=== PATIENT | male | born 1960 | race Caucasian/White ===

== ENCOUNTER 2019-02-07 14:44 | Outpatient (CLI) | payer OTHER | END 2019-02-07 14:45 | disposition critical access hospital (66) | LOC: EMS 14:44 | PROVIDERS: ATTEND Surgery | DX: R73.09 Other abnormal glucose (principal); R55 Syncope and collapse | CPT/HCPCS: A0425; A0429 ==

== ENCOUNTER 2019-02-07 15:05 | Emergency (ER) | payer OTHER ==
[2019-02-07] MEDS ORDERED: SODIUM CHLORIDE 0.9% 1,000 ML IV ONE (15:22)
[2019-02-07] MEDS ORDERED: TETANUS/DIPHTHERIA/PERTUSSIS 0.5 ML SYRINGE IM ONE (15:25)
--- NOTE | 2019-02-07 15:25 | ED Physician Documentation ---
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 He was walking his driveway and passed out. He has scrapes on his face. Also on the right hand and the right knee. Tetanus is unknown. He is a little bit belligerent on initial evaluation and refusing to the c-collar on. Blood sugar was quite high for paramedics. He is a diabetic on metformin.) Review of Systems Constitutional: denies: Fever, Chills Cardiac: denies: Chest pain / pressure, Palpitations Respiratory: denies: Dyspnea, Cough GI: denies: Abdominal Pain PD PAST MEDICAL HISTORY - Past Medical History Past Medical History: Yes Cardiovascular: Hypertension Endocrine/Autoimmune: Type 2 diabetes - Present Medications Home Medications: Ambulatory Orders Medication Instructions Recorded Confirmed Disulfiram [Antabuse] 250 mg PO DAILY #30 tablet 02/07/19 Insulin Glargine [Lantus Solostar] 50 unit SQ DAILY #1 pen 02/07/19 - Allergies Allergies/Adverse Reactions: Allergies Allergy/AdvReac Type Severity Reaction Status Date / Time No Known Drug Allergies Allergy Verified 02/07/19 15:16 - Living Situation Living Situation: reports: With spouse/s.o. - Social History Does the pt drink ETOH?: Yes - Family History Family history: reports: Non contributory PD ED PE NORMAL - Vitals Vital signs reviewed: Yes - General General: Alert and oriented X 3, Other (Slightly slow slurred speech with horizontal line nystagmus.) - HEENT HEENT: PERRL, Other (Shallow scrape on the right eyebrow, no facial bony tenderness.) - Neck Neck: No bony TTP - Cardiac Cardiac: RRR, No murmur - Respiratory Respiratory: No respiratory distress, Clear bilaterally - Abdomen Abdomen: Normal bowel sounds, Soft, Non tender - Extremities Extremities: Other (Nontender mild scrapes on the dorsum of the right hand and to the right patella without tenderness of or limited range of motion) - Neuro Neuro: Alert and oriented X 3, No motor deficit, No sensory deficit, Normal speech Eye Opening: Spontaneous Motor: Obeys Commands Verbal: Oriented GCS Score: 15 Results - Vitals Vitals: Vital Signs - 24 hr 02/07/19 02/07/19 02/07/19 15:14 16:40 16:58 Heart Rate 94 95 94 Respiratory 16 18 16 Rate Blood Pressure 174/97 H 161/99 H 164/86 H O2 Saturation 95 97 98 02/07/19 18:00 Heart Rate 97 Respiratory 22 Rate Blood Pressure 162/96 H O2 Saturation 94 Oxygen O2 Source Room air - EKG (time done) 1515 Rate: Rate (enter#) (95) Rhythm: NSR [place]: Normal Intervals: Normal IA QRS: LVH Ischemia: Normal ST segments Computer interpretation: Agree with computer - Labs Labs: Laboratory Tests 02/07/19 02/07/19 02/07/19 15:44 15:44 17:27 WBC 7.3 RBC 3.64 L Hgb 12.3 L Hct 35.2 L MCV 96.7 H MCH 33.8 H MCHC 34.9 RDW 12.0 Plt Count 233 MPV 10.7 Neut # (Auto) 5.9 Lymph # (Auto) 0.8 L Lewis # (Auto) 0.4 Eos # (Auto) 0.0 Baso # (Auto) 0.1 Absolute Nucleated RBC 0.00 Nucleated RBC % 0.0 Sodium 131 L Potassium 3.5 Chloride 88 L Carbon Dioxide 21 Anion Gap 22.0 H BUN 11 Creatinine 1.0 Estimated GFR (MDRD) 76 L Glucose 671 H* POC Whole Bld Glucose 423 H Calcium 9.2 Total Bilirubin 0.7 AST 33 ALT 24 Alkaline Phosphatase 104 Total Protein 7.5 Albumin 4.3 Globulin 3.2 Albumin/Globulin Ratio 1.3 Lipase 59 H Ethyl Alcohol 293.3 02/07/19 18:38 WBC RBC Hgb Hct MCV MCH MCHC RDW Plt Count MPV Neut # (Auto) Lymph # (Auto) Lewis # (Auto) Eos # (Auto) Baso # (Auto) Absolute Nucleated RBC Nucleated RBC % Sodium Potassium Chloride Carbon Dioxide Anion Gap BUN Creatinine Estimated GFR (MDRD) Glucose POC Whole Bld Glucose 272 H Calcium Total Bilirubin AST ALT Alkaline Phosphatase Total Protein Albumin Globulin Albumin/Globulin Ratio Lipase Ethyl Alcohol - Rads (name of study) CT head and cervical spine Radiology: EMP read contemporaneously (atrophy nad) PD MEDICAL DECISION MAKING - ED course ED course: 58-year-old gentleman who had multifactorial syncope from severe hyperglycemia and alcohol. He sobered up over time and was administered IV fluids and divided doses of insulin with improvement in his blood sugar and mental status. He was counseled at length not to drink. He says he often goes long stretches without drinking and does not really have any withdrawal symptoms. He declined offers for consideration for inpatient detox. Departure - Departure Disposition: 01 Home, Self Care Clinical Impression: Syncope Qualifiers: Syncope type: unspecified Qualified Code(s): R55 - Syncope and collapse Uncontrolled diabetes mellitus Qualifiers: Diabetes mellitus type: type 2 Glycemic state: with hyperglycemia Qualified Code(s): E11.65 - Type 2 diabetes mellitus with hyperglycemia Alcohol intoxication Qualifiers: Complication of substance-induced condition: uncomplicated Qualified Code(s): F10.920 - Alcohol use, unspecified with intoxication, uncomplicated Head injury Qualifiers: Encounter type: initial encounter Qualified Code(s): S09.90XA - Unspecified injury of head, initial encounter Condition: Good Record reviewed to determine appropriate education?: Yes Instructions: ED Alcohol Intoxication, ED Syncope Vasovagal, ED Hyperglycemia Diabetic Follow-Up: [facility] [Provider Group] Prescriptions: Disulfiram [Antabuse] 250 mg PO DAILY #30 tablet Insulin Glargine [Lantus Solostar] 50 unit SQ DAILY #1 pen Comments: Your EKG is abnormal suggesting left ventricular hypertrophy. Follow-up with your primary care physician, next available appointment. He or she may want to order an echocardiogram on you. Also it is imperative not to drink. And control your blood sugars. Check your blood sugars 4 times a day until stable. You can increase the Lantus by 10 units a day if your blood sugars are above 200 persistently. Return for new worsening symptoms.
[2019-02-07 15:51] LABS: BASOPHILS # (AUTO) 0.1 10^3/uL (0.0-0.1); BASOPHILS % (AUTO) 0.8 %; EOSINOPHILS % (AUTO) 0.4 %; HGB - HEMOGLOBIN 12.3 g/dL (14.0-18.0); LYMPHOCYTES # (AUTO) 0.8 10^3/uL (1.5-3.5); LYMPHOCYTES % (AUTO) 10.9 %; MEAN CORPUSCULAR HEMOGLOBIN 33.8 pg (27.0-31.0); MEAN CORPUSCULAR HGB CONC 34.9 g/dL (32.0-36.0); MEAN CORPUSCULAR VOLUME 96.7 fL (80.0-94.0); MEAN PLATELET VOLUME 10.7 fL (7.4-11.4); MONOCYTES # (AUTO) 0.4 10^3/uL (0.0-1.0); MONOCYTES % (AUTO) 5.6 %; NEUTROPHILS # (AUTO) 5.9 10^3/uL (1.5-6.6); NEUTROPHILS % (AUTO) 81.6 %; PLT - PLATELET COUNT 233 10^3/uL (130-450); RED BLOOD COUNT 3.64 10^6/uL (4.70-6.10); WHITE BLOOD COUNT 7.3 x10^3/uL (4.8-10.8)
[2019-02-07 16:06] LABS: ALBUMIN 4.3 g/dL (3.2-5.5); ALBUMIN/GLOBULIN RATIO 1.3 (1.0-2.2); BILIRUBIN,TOTAL 0.7 mg/dL (0.2-1.0); CALCIUM 9.2 mg/dL (8.5-10.3); TOTAL PROTEIN 7.5 g/dL (6.7-8.2)
[2019-02-07] MEDS ORDERED: INSULIN REGULAR HUMAN 100 UNIT/1 ML 10 ML MDV IVP STA ×2 (16:10→17:41)
[2019-02-07] MEDS ORDERED: POTASSIUM CHLOR 10 MEQ/100 ML 10 MEQ/100 ML BAG IV ONE (16:10)
[2019-02-07] MEDS ORDERED: POTASSIUM CHLORIDE 20 MEQ TABLET PO STA (16:10)
--- NOTE | 2019-02-07 17:01 | CT Report ---
Reason: head inj Procedure Date: 02/07/2019 Accession Number: [id number] / [id number] Procedure: CT - CERVICAL SPINE WO CPT Code: FULL RESULT: EXAM: CT CERVICAL SPINE WITHOUT CONTRAST DATE: 02/07/2019 04:35 PM. HISTORY: Head inj. COMPARISONS: None. TECHNIQUE: Thin-section axial images were acquired of the cervical spine without contrast. Post-processing: Coronal and sagittal reformats. Other: None. In accordance with CT protocol optimization, one or more of the following dose reduction techniques were utilized for this exam: automated exposure control, adjustment of mA and/or KV based on patient size, or use of iterative reconstructive technique. FINDINGS: Alignment: No scoliosis or spondylolisthesis. Bones: No fracture or bone lesion. Interspace Levels/Facets: C1-C2: Moderate degenerative changes. C2-C3: Unremarkable. C3-C4: Mild neuroforaminal narrowing on the right. C4-C5: Moderate bilateral neural foraminal narrowing. Moderate degenerative disk disease. C5-C6: Mild degenerative disk disease. C6-C7: Moderate degenerative disk disease with moderate left neural foraminal narrowing. C7-T1: Unremarkable. Musculature: Normal. No fatty atrophy. Other: The paravertebral and prevertebral soft tissues are unremarkable. The lung apices are clear. IMPRESSION: 1. No acute cervical spine fracture or listhesis. 2. Multilevel degenerative changes. RADIA
--- NOTE | 2019-02-07 17:01 | CT Report ---
Reason: head inj Procedure Date: 02/07/2019 Accession Number: [id number] / [id number] Procedure: CT - HEAD WO CPT Code: FULL RESULT: EXAM: CT HEAD EXAM DATE: 02/07/2019 04:35 PM. CLINICAL HISTORY: Head inj. COMPARISON: None. TECHNIQUE: Multiaxial CT images were obtained from the foramen magnum to the vertex. Reformats: Sagittal and coronal. IV contrast: None. In accordance with CT protocol optimization, one or more of the following dose reduction techniques were utilized for this exam: automated exposure control, adjustment of mA and/or KV based on patient size, or use of iterative reconstructive technique. FINDINGS: Parenchyma: No intraparenchymal hemorrhage. No evidence of mass, midline shift, or CT findings of infarction. Patel-white differentiation is distinct. There is mild periventricular white matter hypodensity. Extraaxial Spaces: Normal for age. No subdural or epidural collections identified. Ventricles: Normal in size and position. Sinuses and Orbits: Imaged paranasal sinuses, orbits, and mastoids show no significant abnormality. Bones: No evidence of fracture or calvarial defect. Other: None. IMPRESSION: 1. Negative for acute intracranial hemorrhage, mass-effect or definite acute process. 2. Mild nonfocal white matter disease. Nonspecific and most commonly attributed to sequela of chronic microangiopathy. RADIA
[2019-02-07 18:29] VITALS: BP 162/96
== END 2019-02-07 19:08 | disposition home or self-care (01) ==
LOC: ED 15:05
DX: R55 Syncope and collapse (principal); F10.920 Alcohol use, unspecified with intoxication, uncomplicated; E11.65 Type 2 diabetes mellitus with hyperglycemia; Z79.4 Long term (current) use of insulin; S09.90XA Unspecified injury of head, initial encounter; S00.211A Abrasion of right eyelid and periocular area, initial encounter; S60.511A Abrasion of right hand, initial encounter; S80.211A Abrasion, right knee, initial encounter; W18.30XA Fall on same level, unspecified, initial encounter; Y93.01 Activity, walking, marching and hiking; Y92.008 Other place in unspecified non-institutional (private) residence as the place of occurrence of the external cause; Z23 Encounter for immunization; I11.9 Hypertensive heart disease without heart failure; M50.321 Other cervical disc degeneration at C4-C5 level
CPT/HCPCS: 36415; 70450; 72125; 80053; 80320; 83690; 85025; 90471; 90715; 93005; 96365; 99283; 99284; A9270; J1815

== ENCOUNTER 2019-09-04 21:14 | Outpatient (CLI) | payer OTHER | END 2019-09-04 21:15 | disposition short-term general hospital (02) | LOC: EMS 21:14 | PROVIDERS: ATTEND Surgery | DX: R53.1 Weakness (principal) | CPT/HCPCS: A0425; A0429 ==

== ENCOUNTER 2020-08-16 02:56 | Outpatient (CLI) | payer OTHER | END 2020-08-16 02:57 | disposition critical access hospital (66) | LOC: EMS 02:56 | DX: I46.9 Cardiac arrest, cause unspecified (principal) | CPT/HCPCS: A0425; A0433 ==

== ENCOUNTER 2020-08-16 03:10 | Emergency (ER) | payer OTHER ==
[2020-08-16] MEDS ORDERED: CALCIUM CHLORIDE ABBOJECT 1000MG/10 ML SYRINGE IVP STA (03:16)
[2020-08-16] MEDS ORDERED: EPINEPHrine ABBOJECT 1 MG/10 ML SYRINGE IVP STA ×7 (03:16→05:39)
[2020-08-16] MEDS ORDERED: SODIUM BICARBONATE ABBOJECT 50 MEQ/50 ML SYRINGE IVP STA ×4 (03:16→03:58)
--- OUTSIDE RECORDS SUMMARY | 2020-08-16 03:21 | EXTERNAL MEDICAL SUMMARY RPT | Continuity of Care Document ---
:1960 Demographics Phone Unavailable Preferred Language Unknown Marital Status Unknown Sikhism Affiliation Unknown Race Unknown Ethnic Group Unknown Author Organization [facility] Address [address] [phone] Phone Social History date description facility [phone]
[2020-08-16] MEDS ORDERED: EPINEPHrine 1 MG/ML AMP ONE (03:29)
[2020-08-16] MEDS ORDERED: SODIUM BICARBONATE ABBOJECT 50 MEQ/50 ML SYRINGE ONE ×2 (03:30→07:00)
[2020-08-16 03:31] LABS: BASOPHILS % (AUTO) 0.4 %; EOSINOPHILS % (AUTO) 1.1 %; HCT - HEMATOCRIT 36.2 % (42.0-52.0); HGB - HEMOGLOBIN 11.2 g/dL (14.0-18.0); MEAN CORPUSCULAR HEMOGLOBIN 33.2 pg (27.0-31.0); MEAN CORPUSCULAR HGB CONC 30.9 g/dL (32.0-36.0); MEAN CORPUSCULAR VOLUME 107.4 fL (80.0-94.0); MEAN PLATELET VOLUME 10.8 fL (7.4-11.4); MONOCYTES % (AUTO) 3.4 %; NEUTROPHILS % (AUTO) 38.1 %; PLT - PLATELET COUNT 203 10^3/uL (130-450); RED BLOOD COUNT 3.37 10^6/uL (4.70-6.10); RED CELL DISTRIBUTION WIDTH 12.4 % (12.0-15.0); WHITE BLOOD COUNT 8.5 x10^3/uL (4.8-10.8)
[2020-08-16 03:32] LABS: ABNORMAL LYMPHS % (MANUAL) 0 %; VBG PH 6.862 (7.31-7.41)
[2020-08-16 03:33] LABS: VBG BASE EXCESS -20.2 mmol/L (-2 - +2); VBG OXYGEN SATURATION 75.6 % (60-80); VBG PCO2 79.6 mmHg (41-51); VBG PO2 68.2 mmHg (25-47); VBG TOTAL CO2 16.4 mmol/L (24-29)
[2020-08-16 03:43] LABS: ALBUMIN 2.9 g/dL (3.2-5.5); BILIRUBIN,TOTAL 0.5 mg/dL (0.2-1.0); CALCIUM 9.6 mg/dL (8.5-10.3); CREATININE 1.3 mg/dL (0.6-1.2); POTASSIUM 3.5 mmol/L (3.5-5.0); TOTAL PROTEIN 5.8 g/dL (6.7-8.2)
[2020-08-16] MEDS ORDERED: INSULIN REGULAR HUMAN 100 UNIT/1 ML 10 ML MDV ONE (03:48)
[2020-08-16] MEDS ORDERED: POTASSIUM CHLOR 10 MEQ/100 ML 20 MEQ/200 ML BAG IV ONE (03:48)
[2020-08-16] MEDS ORDERED: POTASSIUM CHLOR 10 MEQ/100 ML 10 MEQ/100 ML BAG IV ONE ×7 (03:54→05:30)
[2020-08-16 03:59] LABS: MUDS CUTOFF CONCENTRATIONS CUTOFF CONC BELOW:
[2020-08-16] MEDS ORDERED: DOPamine 800 MG/500 ML 800 MG/500 ML BAG IV STA (04:00)
[2020-08-16 04:04] LABS: BILIRUBIN,URINE NEGATIVE (NEGATIVE); GLUCOSE, URINE (UA) >=1000 mg/dL (NEGATIVE); KETONES,URINE (UA) NEGATIVE (NEGATIVE); LEUKOCYTE ESTERASE, URINE NEGATIVE (NEGATIVE); NITRITE,URINE NEGATIVE (NEGATIVE); OCCULT BLOOD,URINE MODERATE (NEGATIVE); PROTEIN,URINE NEGATIVE (NEGATIVE); UROBILINOGEN,URINE 0.2 (NORMAL) E.U./dL (NORMAL)
[2020-08-16 04:08] LABS: VBG HCO3 16.8 mmol/L (23-28); VBG PCO2 62.7 mmHg (41-51); VBG PH 7.047 (7.31-7.41); VBG PO2 49.5 mmHg (25-47)
[2020-08-16 04:09] LABS: VBG OXYGEN SATURATION 65.6 % (60-80); VBG TOTAL CO2 18.8 mmol/L (24-29)
[2020-08-16 04:13] LABS: BACTERIA,URINE None Seen /HPF (None Seen); CLARITY,URINE CLEAR (CLEAR); SQUAMOUS EPITHELIAL CELL,UR NONE SEEN (<= Few); WBC,URINE 0-3 /HPF (0-3)
[2020-08-16 04:15] LABS: BAND NEUTROPHILS % (MANUAL) 5 %; EOSINOPHILS # (MANUAL) 0.1 10^3/uL (0-0.7); LYMPHOCYTES % (MANUAL) 47 %; MONOCYTES # (MANUAL) 0.3 10^3/uL (0.0-1.0); MYELOCYTES % (MANUAL) 6 %; NEUTROPHILS # (MANUAL) 3.6 10^3/uL (1.5-6.6)
[2020-08-16 04:15] LABS: AMPHETAMINE SCREEN,URINE NEGATIVE (NEGATIVE); BARBITURATE SCREEN,UR NEGATIVE (NEGATIVE); BENZODIAZEPINES SCREEN, URINE NEGATIVE (NEGATIVE); COCAINE SCREEN URINE NEGATIVE (NEGATIVE); METHADONE SCREEN, URINE NEGATIVE (NEGATIVE); METHAMPHETAMINES SCREEN, URINE NEGATIVE (NEGATIVE); OPIATE SCREEN, URINE NEGATIVE (NEGATIVE); OXYCODONE SCREEN, URINE NEGATIVE (NEGATIVE); PROPOXYPHENE SCREEN, URINE NEGATIVE (NEGATIVE); THC CANNABINOID SCREEN, URINE NEGATIVE (NEGATIVE); TRICYCLIC ANTIDEPRESSANT,URINE NEGATIVE (NEGATIVE)
[2020-08-16] MEDS ORDERED: INSULIN REGULAR HUMAN 100 UNIT/1 ML 10 ML MDV IVP STA ×2 (04:15→04:40)
[2020-08-16 04:16] LABS: DIFFERENTIAL COMMENT MANUAL DIFFERENTIAL; PLATELET ESTIMATE, MANUAL NORMAL (130-450,000) (NORMAL); PLATELET MORPHOLOGY NORMAL APPEARANCE (NORMAL); RBC MORPHOLOGY (MULTIPLE) 2+ MACROCYTOSIS (NORMAL); WBC MORPHOLOGY (MULTIPLE) NORMAL APPEARANCE (NORMAL)
[2020-08-16] MEDS ORDERED: POTASSIUM CHLOR 10 MEQ/100 ML 40 MEQ/400 ML BAG IV ONE (04:23)
[2020-08-16 04:39] LABS: ABG HCO3 13.8 mmol/L (22.0-26.0); ABG PCO2 48 mmHg (34-45); ABG PO2 111 mmHg (80-100); ABG TCO2 15.2 MMOL/L (21.0-29.0)
[2020-08-16 04:40] LABS: ABG OXYGEN SATURATION 96 % (94-98)
[2020-08-16] MEDS ORDERED: INSULIN REGULAR HUMAN 100 UNIT in SODIUM CHLORIDE 0.9% 100ML 99 ML IV STA (04:40)
[2020-08-16 04:41] LABS: ALLEN TEST POSITIVE
[2020-08-16 04:45] LABS: ABG PH 7.08 (7.35-7.45)
[2020-08-16 04:46] LABS: ABG MODE OF VENTILATION ASSIST/CONTROL; ABG RESPIRATORY RATE 35 b/min
[2020-08-16] MEDS ORDERED: AMPICILLIN/SULBACTAM 3 GM in SODIUM CHLORIDE 0.9% MINIBAG 100 ML IV STA (04:47)
[2020-08-16 05:05] LABS: CALCIUM 8.6 mg/dL (8.5-10.3); CREATININE 1.5 mg/dL (0.6-1.2); POTASSIUM 3.2 mmol/L (3.5-5.0)
[2020-08-16 05:07] LABS: B. PARAPERTUSSIS- RESP PCR PAN NOT DETECTED; B. PERTUSSIS- RESP PCR PANEL NOT DETECTED; C. PNEUMONIAE- RESP PCR PANEL NOT DETECTED; CORONAVIRUS 229E-RESP PCR NOT DETECTED; CORONAVIRUS HKU1-RESP PCR NOT DETECTED; CORONAVIRUS NL63-RESP PCR NOT DETECTED; CORONAVIRUS OC43-RESP PCR NOT DETECTED; HUMAN METAPNEUMOVIRUS NOT DETECTED; INFLUENZA A- RESP PCR PANEL NOT DETECTED; INFLUENZA B - RESP PCR PANEL NOT DETECTED; M. PNEUMONIAE- RESP PCR PANEL NOT DETECTED; PARAINFLUENZA VIRUS 1 NOT DETECTED; PARAINFLUENZA VIRUS 2 NOT DETECTED; PARAINFLUENZA VIRUS 3 NOT DETECTED; PARAINFLUENZA VIRUS 4 NOT DETECTED; RHINOVIRUS/ENTEROVIRUS NOT DETECTED; RSV- RESP PCR PANEL NOT DETECTED; SARS-CoV-2 -RESP PCR PANEL NOT DETECTED
[2020-08-16 05:24] LABS: ACETAMINOPHEN < 10 ug/mL (10-30); ETOH - ETHANOL 145.3 mg/dL; SALICYLATE < 6.0 mg/dL
[2020-08-16 05:30] LABS: ABG BASE EXCESS -17.7 mmol/L (-2.0-3.0); ABG HCO3 10.8 mmol/L (22.0-26.0); ABG OXYGEN SATURATION 94 % (94-98); ABG PCO2 35 mmHg (34-45); ABG PO2 97 mmHg (80-100)
[2020-08-16 05:32] LABS: ABG PH 7.11 (7.35-7.45); ABG TCO2 11.9 MMOL/L (21.0-29.0)
[2020-08-16 05:33] LABS: ABG MODE OF VENTILATION ASSIST/CONTROL; ABG RESPIRATORY RATE 35 b/min
[2020-08-16 06:01] LABS: ALBUMIN 2.9 g/dL (3.2-5.5); BILIRUBIN,TOTAL 0.9 mg/dL (0.2-1.0); CALCIUM 8.6 mg/dL (8.5-10.3); CREATININE 1.5 mg/dL (0.6-1.2); POTASSIUM 2.8 mmol/L (3.5-5.0); TOTAL PROTEIN 5.8 g/dL (6.7-8.2)
[2020-08-16] MEDS ORDERED: INSULIN REGULAR HUMAN 100 UNIT/1 ML 10 ML MDV SUBQ STA (06:02)
--- NOTE | 2020-08-16 06:28 | ED Physician Documentation ---
History of Present Illness - Stated complaint Stated Complaint: UNRESPONSIVE - Chief complaint Chief Complaint: Critical Care - History obtained from History obtained from: Patient - Additonal information Additional information: 59-year-old male with past medical history of diabetes and alcohol abuse presents in cardiac arrest brought in by EMS. Per EMS report, his woke up in the middle of the night hearing him gasping, turned him and found him to be unresponsive with a weak pulse and began CPR and called 911. Upon EMS arrival CPR was initiated and they worked on him for 30 to 45 minutes with several episodes of ROSC, without any shockable rhythms. Upon arrival to the emergency department he was undergoing CPR again and we continued ACLS protocol (see code sheet). Shahab tube was switched for an ET tube, central line, arterial line, bilateral ultrasound-guided 18-gauge IVs were established, the patient was stabilized. Upon discussion with family it was determined that he is full code as of now. Per 's report, he had been acting normal yesterday. Further history limited by patient acuity. Review of Systems Unable to obtain: Intubated, Other (Unable to obtain secondary to patient acuity.) PD PAST MEDICAL HISTORY - Past Medical History Cardiovascular: Hypertension Endocrine/Autoimmune: Type 2 diabetes - Present Medications Home Medications: Ambulatory Orders Medication Instructions Recorded Confirmed Disulfiram [Antabuse] 250 mg PO DAILY #30 tablet 02/07/19 Insulin Glargine [Lantus Solostar] 50 unit SQ DAILY #1 pen 02/07/19 - Allergies Allergies/Adverse Reactions: Allergies Allergy/AdvReac Type Severity Reaction Status Date / Time No Known Drug Allergies Allergy Verified 02/07/19 15:16 - Social History Does the pt smoke?: No Smoking Status: Never smoker Does the pt drink ETOH?: Yes Does the pt have substance abuse?: No - Immunizations Immunizations: TDAP >10years/unknown PD ED PE NORMAL - Vitals Vital signs reviewed: Yes - General General: Other (Intubated, unresponsive) - HEENT HEENT: Atraumatic, Other (Pupils sluggishly reactive) - Neck Neck: Other (No deformity) - Cardiac Cardiac: Other (CPR in progress. Post ROSC, tachycardic rate, irregular rhythm) - Respiratory Respiratory: Other (BL breath sounds. initially, shahab tube in place, then switched over to ett) - Abdomen Abdomen: Other (moderately distended) - Male Male : Other (marquez placed with good urine output) - Rectal Rectal: Deferred - Back Back: Other (no deformity) - Derm Derm: Other (cool, clammy) - Extremities Extremities: No deformity - Neuro Neuro: Other (intubated, no gag reflex) - Psych Psych: Other (intubated) Results - Vitals Vitals: Vital Signs - 24 hr 08/16/20 08/16/20 08/16/20 03:24 03:29 03:33 Temperature Heart Rate 87 144 H 131 H Respiratory 35 H Rate Blood Pressure 56/32 L O2 Saturation 89 L 85 L 08/16/20 08/16/20 08/16/20 03:37 03:38 03:46 Temperature Heart Rate 104 H 92 128 H Respiratory 33 H Rate Blood Pressure 173/110 H O2 Saturation 78 L 74 L 93 08/16/20 08/16/20 08/16/20 03:48 03:49 03:57 Temperature Heart Rate 92 91 Respiratory 32 H 43 H Rate Blood Pressure 203/122 H O2 Saturation 98 92 95 08/16/20 08/16/20 08/16/20 03:59 04:02 04:13 Temperature Heart Rate 92 118 H 132 H Respiratory 22 23 35 H Rate Blood Pressure 121/76 96/63 89/69 L O2 Saturation 85 L 96 88 L 08/16/20 08/16/20 08/16/20 04:25 04:27 04:30 Temperature Heart Rate 137 H 126 H Respiratory 35 H 35 H Rate Blood Pressure 152/100 H 233/136 H O2 Saturation 85 L 90 L 08/16/20 08/16/20 08/16/20 04:32 04:33 04:41 Temperature 32.7 C L Heart Rate 136 H 137 H 127 H Respiratory 35 H 35 H 35 H Rate Blood Pressure 201/112 H 167/76 H O2 Saturation 94 92 93 08/16/20 08/16/20 08/16/20 04:49 04:53 04:57 Temperature 35.4 C L Heart Rate 127 H 126 H 126 H Respiratory 35 H 35 H 35 H Rate Blood Pressure 149/71 H 146/68 H 134/65 H O2 Saturation 90 L 90 L 89 L 08/16/20 08/16/20 08/16/20 05:16 07:17 07:29 Temperature 36.0 C L 36.0 C L Heart Rate 125 H 126 H 127 H Respiratory 35 H 36 H 42 H Rate Blood Pressure 122/62 108/65 96/96 H O2 Saturation 92 85 L 82 L 08/16/20 08/16/20 08/16/20 07:44 07:54 07:59 Temperature 36.1 C L 36.3 C L Heart Rate 125 H 112 H 123 H Respiratory 48 H 39 H 39 H Rate Blood Pressure 81/55 L 73/50 L 95/62 O2 Saturation 81 L 84 L 08/16/20 08/16/20 08/16/20 08:04 08:12 08:25 Temperature 36.3 C L 36.4 C L 36.4 C L Heart Rate 130 H 132 H 129 H Respiratory 39 H 39 H 36 H Rate Blood Pressure 106/69 112/74 85/62 L O2 Saturation 86 L 88 L 86 L 08/16/20 08/16/20 08:40 08:48 Temperature 36.5 C 36.6 C Heart Rate 132 H 132 H Respiratory 39 H 40 H Rate Blood Pressure 96/67 95/66 O2 Saturation 85 L 85 L Oxygen O2 Source Mechanical ventilator - Labs Labs: Laboratory Tests 08/16/20 08/16/20 08/16/20 03:20 03:20 03:20 WBC 8.5 RBC 3.37 L Hgb 11.2 L Hct 36.2 L MCV 107.4 H MCH 33.2 H MCHC 30.9 L RDW 12.4 Plt Count 203 MPV 10.8 Neut # (Auto) Not Reportable Lymph # (Auto) Not Reportable Bleckley # (Auto) Not Reportable Eos # (Auto) Not Reportable Baso # (Auto) Not Reportable Absolute Nucleated RBC Not Reportable Total Counted 100 Band Neuts % (Manual) 5 Abnorm Lymph % (Manual) 0 Myelocytes % 6 H Nucleated RBC % Not Reportable Neutrophils # (Manual) 3.6 Lymphocytes # (Manual) 4.0 H Monocytes # (Manual) 0.3 Eosinophils # (Manual) 0.1 Basophils # (Manual) 0.0 Differential Comment MANUAL DIFFERENTIAL WBC Morphology NORMAL APPEARANCE Platelet Estimate NORMAL (130-450,000) Platelet Morphology NORMAL APPEARANCE RBC Morph Micro Appear 2+ MACROCYTOSIS Bld Gas Analysis Time Sample Site ABG pH ABG pCO2 ABG pO2 ABG HCO3 ABG Total CO2 ABG O2 Saturation ABG Base Excess Yury Test VBG pH 6.862 L VBG pCO2 79.6 H VBG pO2 68.2 H VBG HCO3 14.0 L VBG Total CO2 16.4 L VBG O2 Saturation 75.6 VBG Base Excess -20.2 L Respiration Rate O2 Delivery Device Vent Mode FiO2 Tidal Volume PEEP Pressure Support Vent Sodium Potassium Chloride Carbon Dioxide Anion Gap BUN Creatinine Estimated GFR (MDRD) Glucose Calcium Total Bilirubin AST ALT Alkaline Phosphatase Troponin I High Sens 241.7 H* Total Protein Albumin Globulin Albumin/Globulin Ratio Urine Color Urine Clarity Urine pH Ur Specific [place] Urine Protein Urine Glucose (UA) Urine Ketones Urine Occult Blood Urine Nitrite Urine Bilirubin Urine Urobilinogen Ur Leukocyte Esterase Urine RBC Urine WBC Ur Squamous Epith Cells Urine Bacteria Ur Microscopic Review Urine Culture Comments Nasal Adenovirus (PCR) Nasal B. parapertussis DNA (PCR) Nasal Coronavir 229E PCR Nasal Coronavir HKU1 PCR Nasal Coronavir NL63 PCR Nasal Coronavir OC43 PCR Nasal Enterovir/Rhinovir PCR Nasal Influenza B PCR Nasal Influenza A PCR Nasal Parainfluen 1 PCR Nasal Parainfluen 2 PCR Nasal Parainfluen 3 PCR Nasal Parainfluen 4 PCR Nasal RSV (PCR) Nasal B.pertussis DNA PCR Nasal C.pneumoniae (PCR) Robert Human Metapneumo PCR Nasal M.pneumoniae (PCR) Nasal SARS-CoV-2 (PCR) Salicylates Urine Opiates Screen Ur Oxycodone Screen Urine Methadone Screen Ur Propoxyphene Screen Acetaminophen Ur Barbiturates Screen Ur Tricyclics Screen Ur Phencyclidine Scrn Ur Amphetamine Screen U Methamphetamines Scrn U Benzodiazepines Scrn Urine Cocaine Screen U Cannabinoids Screen Ethyl Alcohol Serum Ketones 08/16/20 08/16/20 08/16/20 03:20 03:20 03:20 WBC RBC Hgb Hct MCV MCH MCHC RDW Plt Count MPV Neut # (Auto) Lymph # (Auto) Bleckley # (Auto) Eos # (Auto) Baso # (Auto) Absolute Nucleated RBC Total Counted Band Neuts % (Manual) Abnorm Lymph % (Manual) Myelocytes % Nucleated RBC % Neutrophils # (Manual) Lymphocytes # (Manual) Monocytes # (Manual) Eosinophils # (Manual) Basophils # (Manual) Differential Comment WBC Morphology Platelet Estimate Platelet Morphology RBC Morph Micro Appear Bld Gas Analysis Time Sample Site ABG pH ABG pCO2 ABG pO2 ABG HCO3 ABG Total CO2 ABG O2 Saturation ABG Base Excess Yury Test VBG pH VBG pCO2 VBG pO2 VBG HCO3 VBG Total CO2 VBG O2 Saturation VBG Base Excess Respiration Rate O2 Delivery Device Vent Mode FiO2 Tidal Volume PEEP Pressure Support Vent Sodium 131 L Potassium 3.5 Chloride 86 L Carbon Dioxide 15 L Anion Gap 30.0 H BUN 5 L Creatinine 1.3 H Estimated GFR (MDRD) 56 L Glucose 726 H* Calcium 9.6 Total Bilirubin 0.5 AST 124 H ALT 53 Alkaline Phosphatase 133 H Troponin I High Sens Total Protein 5.8 L Albumin 2.9 L Globulin 2.9 Albumin/Globulin Ratio 1.0 Urine Color Urine Clarity Urine pH Ur Specific [place] Urine Protein Urine Glucose (UA) Urine Ketones Urine Occult Blood Urine Nitrite Urine Bilirubin Urine Urobilinogen Ur Leukocyte Esterase Urine RBC Urine WBC Ur Squamous Epith Cells Urine Bacteria Ur Microscopic Review Urine Culture Comments Nasal Adenovirus (PCR) Nasal B. parapertussis DNA (PCR) Nasal Coronavir 229E PCR Nasal Coronavir HKU1 PCR Nasal Coronavir NL63 PCR Nasal Coronavir OC43 PCR Nasal Enterovir/Rhinovir PCR Nasal Influenza B PCR Nasal Influenza A PCR Nasal Parainfluen 1 PCR Nasal Parainfluen 2 PCR Nasal Parainfluen 3 PCR Nasal Parainfluen 4 PCR Nasal RSV (PCR) Nasal B.pertussis DNA PCR Nasal C.pneumoniae (PCR) Robert Human Metapneumo PCR Nasal M.pneumoniae (PCR) Nasal SARS-CoV-2 (PCR) Salicylates < 6.0 Urine Opiates Screen Ur Oxycodone Screen Urine Methadone Screen Ur Propoxyphene Screen Acetaminophen < 10 L Ur Barbiturates Screen Ur Tricyclics Screen Ur Phencyclidine Scrn Ur Amphetamine Screen U Methamphetamines Scrn U Benzodiazepines Scrn Urine Cocaine Screen U Cannabinoids Screen Ethyl Alcohol 145.3 Serum Ketones NEGATIVE 08/16/20 08/16/20 08/16/20 03:54 04:00 04:08 WBC RBC Hgb Hct MCV MCH MCHC RDW Plt Count MPV Neut # (Auto) Lymph # (Auto) Bleckley # (Auto) Eos # (Auto) Baso # (Auto) Absolute Nucleated RBC Total Counted Band Neuts % (Manual) Abnorm Lymph % (Manual) Myelocytes % Nucleated RBC % Neutrophils # (Manual) Lymphocytes # (Manual) Monocytes # (Manual) Eosinophils # (Manual) Basophils # (Manual) Differential Comment WBC Morphology Platelet Estimate Platelet Morphology RBC Morph Micro Appear Bld Gas Analysis Time Sample Site ABG pH ABG pCO2 ABG pO2 ABG HCO3 ABG Total CO2 ABG O2 Saturation ABG Base Excess Yury Test VBG pH 7.047 L VBG pCO2 62.7 H VBG pO2 49.5 H VBG HCO3 16.8 L VBG Total CO2 18.8 L VBG O2 Saturation 65.6 VBG Base Excess -14.0 L Respiration Rate O2 Delivery Device Vent Mode FiO2 Tidal Volume PEEP Pressure Support Vent Sodium Potassium Chloride Carbon Dioxide Anion Gap BUN Creatinine Estimated GFR (MDRD) Glucose Calcium Total Bilirubin AST ALT Alkaline Phosphatase Troponin I High Sens Total Protein Albumin Globulin Albumin/Globulin Ratio Urine Color YELLOW Urine Clarity CLEAR Urine pH 6.0 Ur Specific [place] <=1.005 Urine Protein NEGATIVE Urine Glucose (UA) >=1000 H Urine Ketones NEGATIVE Urine Occult Blood MODERATE H Urine Nitrite NEGATIVE Urine Bilirubin NEGATIVE Urine Urobilinogen 0.2 (NORMAL) Ur Leukocyte Esterase NEGATIVE Urine RBC 11-25 H Urine WBC 0-3 Ur Squamous Epith Cells NONE SEEN Urine Bacteria None Seen Ur Microscopic Review INDICATED Urine Culture Comments NOT INDICATED Nasal Adenovirus (PCR) NOT DETECTED Nasal B. parapertussis DNA (PCR) NOT DETECTED Nasal Coronavir 229E PCR NOT DETECTED Nasal Coronavir HKU1 PCR NOT DETECTED Nasal Coronavir NL63 PCR NOT DETECTED Nasal Coronavir OC43 PCR NOT DETECTED Nasal Enterovir/Rhinovir PCR NOT DETECTED Nasal Influenza B PCR NOT DETECTED Nasal Influenza A PCR NOT DETECTED Nasal Parainfluen 1 PCR NOT DETECTED Nasal Parainfluen 2 PCR NOT DETECTED Nasal Parainfluen 3 PCR NOT DETECTED Nasal Parainfluen 4 PCR NOT DETECTED Nasal RSV (PCR) NOT DETECTED Nasal B.pertussis DNA PCR NOT DETECTED Nasal C.pneumoniae (PCR) NOT DETECTED Robert Human Metapneumo PCR NOT DETECTED Nasal M.pneumoniae (PCR) NOT DETECTED Nasal SARS-CoV-2 (PCR) NOT DETECTED Salicylates Urine Opiates Screen NEGATIVE Ur Oxycodone Screen NEGATIVE Urine Methadone Screen NEGATIVE Ur Propoxyphene Screen NEGATIVE Acetaminophen Ur Barbiturates Screen NEGATIVE Ur Tricyclics Screen NEGATIVE Ur Phencyclidine Scrn NEGATIVE Ur Amphetamine Screen NEGATIVE U Methamphetamines Scrn NEGATIVE U Benzodiazepines Scrn NEGATIVE Urine Cocaine Screen NEGATIVE U Cannabinoids Screen NEGATIVE Ethyl Alcohol Serum Ketones 08/16/20 08/16/20 08/16/20 04:13 04:40 04:40 WBC RBC Hgb Hct MCV MCH MCHC RDW Plt Count MPV Neut # (Auto) Lymph # (Auto) Bleckley # (Auto) Eos # (Auto) Baso # (Auto) Absolute Nucleated RBC Total Counted Band Neuts % (Manual) Abnorm Lymph % (Manual) Myelocytes % Nucleated RBC % Neutrophils # (Manual) Lymphocytes # (Manual) Monocytes # (Manual) Eosinophils # (Manual) Basophils # (Manual) Differential Comment WBC Morphology Platelet Estimate Platelet Morphology RBC Morph Micro Appear Bld Gas Analysis Time 0427 Sample Site LEFT RADIAL ABG pH 7.08 L* ABG pCO2 48 H ABG pO2 111 H ABG HCO3 13.8 L ABG Total CO2 15.2 L ABG O2 Saturation 96 ABG Base Excess -16.0 L Yury Test POSITIVE VBG pH VBG pCO2 VBG pO2 VBG HCO3 VBG Total CO2 VBG O2 Saturation VBG Base Excess Respiration Rate 35 O2 Delivery Device VENTILATOR Vent Mode ASSIST/CONTROL FiO2 100.00 Tidal Volume 450 PEEP 10 Pressure Support Vent 10 Sodium 133 L Potassium 3.2 L Chloride 88 L Carbon Dioxide 15 L Anion Gap 30.0 H BUN 7 Creatinine 1.5 H Estimated GFR (MDRD) 48 L Glucose 733 H* Calcium 8.6 Total Bilirubin AST ALT Alkaline Phosphatase Troponin I High Sens 5082.6 H* Total Protein Albumin Globulin Albumin/Globulin Ratio Urine Color Urine Clarity Urine pH Ur Specific [place] Urine Protein Urine Glucose (UA) Urine Ketones Urine Occult Blood Urine Nitrite Urine Bilirubin Urine Urobilinogen Ur Leukocyte Esterase Urine RBC Urine WBC Ur Squamous Epith Cells Urine Bacteria Ur Microscopic Review Urine Culture Comments Nasal Adenovirus (PCR) Nasal B. parapertussis DNA (PCR) Nasal Coronavir 229E PCR Nasal Coronavir HKU1 PCR Nasal Coronavir NL63 PCR Nasal Coronavir OC43 PCR Nasal Enterovir/Rhinovir PCR Nasal Influenza B PCR Nasal Influenza A PCR Nasal Parainfluen 1 PCR Nasal Parainfluen 2 PCR Nasal Parainfluen 3 PCR Nasal Parainfluen 4 PCR Nasal RSV (PCR) Nasal B.pertussis DNA PCR Nasal C.pneumoniae (PCR) Robert Human Metapneumo PCR Nasal M.pneumoniae (PCR) Nasal SARS-CoV-2 (PCR) Salicylates Urine Opiates Screen Ur Oxycodone Screen Urine Methadone Screen Ur Propoxyphene Screen Acetaminophen Ur Barbiturates Screen Ur Tricyclics Screen Ur Phencyclidine Scrn Ur Amphetamine Screen U Methamphetamines Scrn U Benzodiazepines Scrn Urine Cocaine Screen U Cannabinoids Screen Ethyl Alcohol Serum Ketones 04/30/21 04/30/21 04/30/21 05:15 05:40 07:18 WBC RBC Hgb Hct MCV MCH MCHC RDW Plt Count MPV Neut # (Auto) Lymph # (Auto) Bleckley # (Auto) Eos # (Auto) Baso # (Auto) Absolute Nucleated RBC Total Counted Band Neuts % (Manual) Abnorm Lymph % (Manual) Myelocytes % Nucleated RBC % Neutrophils # (Manual) Lymphocytes # (Manual) Monocytes # (Manual) Eosinophils # (Manual) Basophils # (Manual) Differential Comment WBC Morphology Platelet Estimate Platelet Morphology RBC Morph Micro Appear Bld Gas Analysis Time 517 721 Sample Site A-LINE A-LINE ABG pH 7.11 L* 7.21 L ABG pCO2 35 42 ABG pO2 97 61 L ABG HCO3 10.8 L 16.3 L ABG Total CO2 11.9 L* 17.6 L ABG O2 Saturation 94 86 L* ABG Base Excess -17.7 L -11.1 L Yury Test NOT APPLICABLE POSITIVE VBG pH VBG pCO2 VBG pO2 VBG HCO3 VBG Total CO2 VBG O2 Saturation VBG Base Excess Respiration Rate 35 35 O2 Delivery Device VENTILATOR VENTILATOR Vent Mode ASSIST/CONTROL ASSIST/CONTROL FiO2 100.00 100.00 Tidal Volume 450 450 PEEP 10 10 Pressure Support Vent Sodium 132 L Potassium 2.8 L Chloride 90 L Carbon Dioxide 15 L Anion Gap 27.0 H BUN 7 Creatinine 1.5 H Estimated GFR (MDRD) 48 L Glucose 691 H* Calcium 8.6 Total Bilirubin 0.9 AST 511 H ALT 97 H Alkaline Phosphatase 159 H Troponin I High Sens Total Protein 5.8 L Albumin 2.9 L Globulin 2.9 Albumin/Globulin Ratio 1.0 Urine Color Urine Clarity Urine pH Ur Specific [place] Urine Protein Urine Glucose (UA) Urine Ketones Urine Occult Blood Urine Nitrite Urine Bilirubin Urine Urobilinogen Ur Leukocyte Esterase Urine RBC Urine WBC Ur Squamous Epith Cells Urine Bacteria Ur Microscopic Review Urine Culture Comments Nasal Adenovirus (PCR) Nasal B. parapertussis DNA (PCR) Nasal Coronavir 229E PCR Nasal Coronavir HKU1 PCR Nasal Coronavir NL63 PCR Nasal Coronavir OC43 PCR Nasal Enterovir/Rhinovir PCR Nasal Influenza B PCR Nasal Influenza A PCR Nasal Parainfluen 1 PCR Nasal Parainfluen 2 PCR Nasal Parainfluen 3 PCR Nasal Parainfluen 4 PCR Nasal RSV (PCR) Nasal B.pertussis DNA PCR Nasal C.pneumoniae (PCR) Robert Human Metapneumo PCR Nasal M.pneumoniae (PCR) Nasal SARS-CoV-2 (PCR) Salicylates Urine Opiates Screen Ur Oxycodone Screen Urine Methadone Screen Ur Propoxyphene Screen Acetaminophen Ur Barbiturates Screen Ur Tricyclics Screen Ur Phencyclidine Scrn Ur Amphetamine Screen U Methamphetamines Scrn U Benzodiazepines Scrn Urine Cocaine Screen U Cannabinoids Screen Ethyl Alcohol Serum Ketones 08/16/20 07:18 WBC RBC Hgb Hct MCV MCH MCHC RDW Plt Count MPV Neut # (Auto) Lymph # (Auto) Bleck[place] # (Auto) Eos # (Auto) Baso # (Auto) Absolute Nucleated RBC Total Counted Band Neuts % (Manual) Abnorm Lymph % (Manual) Myelocytes % Nucleated RBC % Neutrophils # (Manual) Lymphocytes # (Manual) Monocytes # (Manual) Eosinophils # (Manual) Basophils # (Manual) Differential Comment WBC Morphology Platelet Estimate Platelet Morphology RBC Morph Micro Appear Bld Gas Analysis Time Sample Site ABG pH ABG pCO2 ABG pO2 ABG HCO3 ABG Total CO2 ABG O2 Saturation ABG Base Excess Yury Test VBG pH VBG pCO2 VBG pO2 VBG HCO3 VBG Total CO2 VBG O2 Saturation VBG Base Excess Respiration Rate O2 Delivery Device Vent Mode FiO2 Tidal Volume PEEP Pressure Support Vent Sodium 130 L Potassium 2.9 L Chloride 90 L Carbon Dioxide 18 L Anion Gap 22.0 H BUN 8 Creatinine 1.6 H Estimated GFR (MDRD) 44 L Glucose 604 H* Calcium 8.4 L Total Bilirubin AST ALT Alkaline Phosphatase Troponin I High Sens Total Protein Albumin Globulin Albumin/Globulin Ratio Urine Color Urine Clarity Urine pH Ur Specific [place] Urine Protein Urine Glucose (UA) Urine Ketones Urine Occult Blood Urine Nitrite Urine Bilirubin Urine Urobilinogen Ur Leukocyte Esterase Urine RBC Urine WBC Ur Squamous Epith Cells Urine Bacteria Ur Microscopic Review Urine Culture Comments Nasal Adenovirus (PCR) Nasal B. parapertussis DNA (PCR) Nasal Coronavir 229E PCR Nasal Coronavir HKU1 PCR Nasal Coronavir NL63 PCR Nasal Coronavir OC43 PCR Nasal Enterovir/Rhinovir PCR Nasal Influenza B PCR Nasal Influenza A PCR Nasal Parainfluen 1 PCR Nasal Parainfluen 2 PCR Nasal Parainfluen 3 PCR Nasal Parainfluen 4 PCR Nasal RSV (PCR) Nasal B.pertussis DNA PCR Nasal C.pneumoniae (PCR) Robert Human Metapneumo PCR Nasal M.pneumoniae (PCR) Nasal SARS-CoV-2 (PCR) Salicylates Urine Opiates Screen Ur Oxycodone Screen Urine Methadone Screen Ur Propoxyphene Screen Acetaminophen Ur Barbiturates Screen Ur Tricyclics Screen Ur Phencyclidine Scrn Ur Amphetamine Screen U Methamphetamines Scrn U Benzodiazepines Scrn Urine Cocaine Screen U Cannabinoids Screen Ethyl Alcohol Serum Ketones Procedures - General procedure General procedure: L tibial IO placed by Dr. Ramírez with good return of blood. flushed well. ebl minimal. Additionally, R radial arterial line placed by Dr. Ramírez with good waveform on first attempt using ultrasound guidance. ebl 5cc. - Intubation Provider: Emergency physician Medications: Other (no sedation meds. intubation occurred during cpr) Blade: Lyndsey (mac 4 hyperangulated -glidescope), Glidescope Tube: Size-enter number (8), Cuffed Route: Oral Confirmation: Direct visualization, Bilateral breath sounds, No abdominal breath sound, End tidal CO2, Pulse ox, Chest xray Complications: No compications - Central Line Central Line Preparation: Unable to obtain consent, Ultrasound used, Sterile prep and drape Central line location: Right IJ Central line type: Triple lumen Central line aftercare: Chlorhexidine disc placed, Secured, Placement confirmed, No pneumothorax, No complications, Pt tolerated well - Bedside sono Bedside sono by EMP: Two 18 gauge IVs established in BL AC using POCUS. one attempt. ebl minimal. patient tolerated well. PD MEDICAL DECISION MAKING - ED course ED course: 59-year-old man presented in cardiac arrest, with ROSC in the emergency department. I discussed with Dr. Elizalde for possible admission here and he and I discussed with family in regards to goals of care. They are unsure at this time whether he should be made comfort measures only and would like to obtain a head CT to evaluate in terms of prognosis. We will have this done in addition to CT angio of the chest to evaluate for pulmonary embolism as well as abdomen pelvis given the distention. Unable to obtain CT 2/2 CT scan malfunction. d/w family who are amenable to transfer. D/w [place] doctor who approves for transfer to [facility], or [place]. Apparently there may be an icu bed at [place]. D/w Dr. Uribe, ICU physician accepting at [facility] who accepts patient in transfer. - Critical Care Time(min): 30 Time Includes: Direct patient care, Review records, Reassess patient, Document care, Coordinate care, Medical consult, Family consult for tx dec Data interpretation: Labs, Pulse ox, ABG, CXR Procedures excluded from critical care time: Central IV, Arterial cannulation, Intubation, EKG, CPR Departure - Departure Disposition: 02 Transfer Acute Care Hosp Clinical Impression: Cardiac arrest, New onset a-fib, Hyperglycemia
--- NOTE | 2020-08-16 06:45 | PROVIDER PROGRESS NOTE ---
Progress Note I was asked by the emergency department provider to assist with discussions with the family regarding goals of care for this patient. In brief summary, this is a 59-year-old male who had a witnessed respiratory arrest by his followed by loss of pulses. She called EMS initiated CPR prior to EMS arrival. He reportedly has had return of spontaneous circulation 6 times. He is now in our emergency department on norepinephrine and dopamine. I did not examine the patient but from what Dr. Ramírez informed me, he has no gag reflex and his pupils are sluggish. His initial ABG revealed a mixed respiratory and metabolic acidosis with a pH of less than 6.9. His labs revealed elevated troponin in the 200s. I spoke with the patient's , neighbor, and his son who was on the phone with Dr. Ramírez. The informed us that he has a history of diabetes for which he takes Lantus, Metformin as well as lisinopril. She told us that she started CPR as she went as she noticed he was unresponsive and had foaming of his mouth. She states he does have a history of alcohol abuse and was seeing ideal options for injections and going to Alcoholics Anonymous. She also tells us that his father around the same age from a myocardial infarction. The patient has no known history of coronary artery disease or arrhythmia. We discussed his current critical condition and that our concern is for potential anoxic brain injury. I recommended that we obtain a CT of the head to the evaluate for evidence of anoxic brain injury. I told the that this can help with overall prognosis. I did explain to her and the son on the phone that depending on the CT scan results, we can decide with how to proceed going forward. The two options would be that he is either a full code and we give him a few days to assess his neurologic status in which case he would need to be transferred to a higher level care. The other option is that if his CT shows evidence of anoxic brain injury, we could consider transitioning him to comfort measures. I also told her that it would be reasonable depending on CT findings to also consider giving him a few days to assess his neurologic status. Of course this would depend on the CT head findings and the severity of anoxic brain injury if it is present. I am, the would like to proceed with a CT of the head. She is awaiting the arrival of her 2 sons from the [facility] to further discuss goals of care. She would also like to await the results of the CT scan. At this point in time, the patient will remain in our emergency department and undergo further imaging. This will help assist with disposition.
[2020-08-16 07:24] LABS: ABG PCO2 42 mmHg (34-45); ABG PH 7.21 (7.35-7.45)
[2020-08-16 07:25] LABS: ABG BASE EXCESS -11.1 mmol/L (-2.0-3.0); ABG HCO3 16.3 mmol/L (22.0-26.0); ABG PO2 61 mmHg (80-100); ABG TCO2 17.6 MMOL/L (21.0-29.0); ALLEN TEST POSITIVE
[2020-08-16 07:26] LABS: ABG MODE OF VENTILATION ASSIST/CONTROL; ABG RESPIRATORY RATE 35 b/min
[2020-08-16 07:29] LABS: ABG OXYGEN SATURATION 86 % (94-98)
[2020-08-16] MEDS ORDERED: POTASSIUM CHLOR 20 MEQ/100 ML 20 MEQ/100 ML BAG IV ONE (07:35)
[2020-08-16 07:38] LABS: CALCIUM 8.4 mg/dL (8.5-10.3); CREATININE 1.6 mg/dL (0.6-1.2); POTASSIUM 2.9 mmol/L (3.5-5.0)
--- NOTE | 2020-08-16 07:57 | XRAY Report ---
PROCEDURE: Chest 1 View X-Ray INDICATIONS: low o2 sats TECHNIQUE: One view of the chest was acquired. COMPARISON: 2 prior studies from 08/16/2020 FINDINGS: Surgical changes and devices: Endotracheal tube appears stable in position with the tip approximately 5 cm from the ynes. Nasogastric tube demonstrated extending to the stomach. Right internal jugular catheter appears stable in position projecting over the superior vena cava. Multiple overlying leads and pads are present as well as an underlying trauma board slightly limiting evaluation. Lungs and pleura: There are low lung volumes. Pulmonary edema appears slightly decreased. Linear bila teral perihilar opacities are redemonstrated representing atelectasis. There are probable small bilat eral pleural effusions. No evidence of pneumothorax. Mediastinum: Mediastinal contours appear unchanged. Heart size is enlarged. Bones and chest wall: No suspicious bony lesions. Overlying soft tissues appear unremarkable. IMPRESSION: 1. Persistent but slightly decreased pulmonary edema. 2. Low lung volumes with linear bilateral basilar opacities likely representing atelectasis. 3. Suspected small bilateral pleural effusions. Reviewed by: Moshe Sandhu MD on 08/16/2020 7:56 AM PDT Approved by: Moshe Sandhu MD on 08/16/2020 7:56 AM PDT Station ID: [id number]
[2020-08-16] MEDS ORDERED: ASPIRIN 300 MG SUPP PR STA (08:45)
--- NOTE | 2020-08-16 08:46 | XRAY Report ---
PROCEDURE: Chest 1 View X-Ray INDICATIONS: line placement TECHNIQUE: One view of the chest was acquired. COMPARISON: Prior study from 08/16/2020. FINDINGS: Surgical changes and devices: There is a new right internal jugular catheter with the tip projecting over the superior vena cava. Endotracheal tube appears similar in position, with the tip approximatel y 5 cm from the ynes. There is a nasogastric tube again noted extending to the stomach. Multiple ov erlying pacer leads and pads are present slightly limiting evaluation. Lungs and pleura: No definite evidence of pneumothorax on this supine study. There are low lung volu mes with persistent pulmonary edema. Linear bilateral perihilar opacities are demonstrated suggestive of atelectasis. No definite pleural effusions. Mediastinum: Mediastinal contours appear unchanged. Heart size is enlarged. Bones and chest wall: No suspicious bony lesions. Overlying soft tissues appear unremarkable. IMPRESSION: 1. No definite evidence of pneumothorax with evaluation limited due to supine technique. 2. Persistent pulmonary edema and linear perihilar opacities likely representing atelectasis. Reviewed by: Moshe Sandhu MD on 08/16/2020 8:45 AM PDT Approved by: Moshe Sandhu MD on 08/16/2020 8:45 AM PDT Station ID: [id number]
[2020-08-16 08:49] VITALS: BP 95/66
--- NOTE | 2020-08-16 08:52 | XRAY Report ---
PROCEDURE: Chest 1 View X-Ray INDICATIONS: Critical TECHNIQUE: One view of the chest was acquired. COMPARISON: Prior study from 08/16/2020. FINDINGS: Surgical changes and devices: There is an endotracheal tube redemonstrated with the tip approximately 4 cm from the ynes. Lungs and pleura: The left lateral costophrenic angle is not included on the current study. Evaluatio n limited by overlying pacer leads and pads as well as underlying trauma board. There are low lung vo lumes. Pulmonary vascular prominence is present consistent with pulmonary edema. No definite evidence of pneumothorax or pleural effusions, with evaluation limited by supine technique and incomplete inc lusion of the left hemithorax. Mediastinum: Heart size is enlarged. Mediastinal contours are slightly widened which may be due to po rtable supine technique and low lung volumes. Bones and chest wall: No suspicious bony lesions. Overlying soft tissues appear unremarkable. IMPRESSION: 1. Limited study due to portable supine technique and incomplete inclusion of the left hemithorax. 2. Persistent pulmonary edema. 3. No definite pneumothorax or pleural effusions identified within the limitations of the study. Reviewed by: Moshe Sandhu MD on 08/16/2020 8:51 AM PDT Approved by: Moshe Sandhu MD on 08/16/2020 8:51 AM PDT Station ID: [id number]
--- NOTE | 2020-08-16 08:55 | XRAY Report ---
PROCEDURE: Chest 1 View X-Ray INDICATIONS: Chest pain TECHNIQUE: One view of the chest was acquired. COMPARISON: None. FINDINGS: Surgical changes and devices: There is an endotracheal tube with the tip approximately 4 cm from the ynes. Lungs and pleura: Evaluation limited by underlying trauma board as well as overlying pacer leads and pads. Lung volumes are low. There is pulmonary vascular prominence compatible with pulmonary edema. Confluent patchy opacities are inserted in the right upper lung zone which are nonspecific and may re present consolidation or possible contusion. Indistinct left basilar opacities may also represent con solidation, contusion, or atelectasis. No definite pneumothorax or pleural effusions, with evaluation limited by supine technique. Mediastinum: Mediastinal contours appear slightly widened which may be due to portable supine techni que and low lung volumes. Heart size is enlarged. Bones and chest wall: No suspicious bony lesions. No displaced fractures identified. Overlying soft tissues appear unremarkable. IMPRESSION: 1. Low lung volumes with atelectasis and pulmonary edema. 2. Confluent patchy opacities in the right upper lung zone and left lung base are nonspecific and the differential includes consolidation, pulmonary contusions, or hemorrhage other etiologies. 3. No definite pneumothorax or pleural effusions with evaluation limited by supine technique. Reviewed by: Moshe Sandhu MD on 08/16/2020 8:54 AM PDT Approved by: Moshe Sandhu MD on 08/16/2020 8:54 AM PDT Station ID: [id number]
[2020-08-16] MEDS ORDERED: VASOPRESSIN 20 UNIT in DEXTROSE 5% 99 ML IV STA ×2 (09:13→09:14)
== END 2020-08-16 09:43 | disposition short-term general hospital (02) ==
LOC: ED 03:10
DX: I46.9 Cardiac arrest, cause unspecified (principal); E11.65 Type 2 diabetes mellitus with hyperglycemia; Z79.4 Long term (current) use of insulin; I48.91 Unspecified atrial fibrillation; I45.10 Unspecified right bundle-branch block; I10 Essential (primary) hypertension; J81.1 Chronic pulmonary edema; R79.89 Other specified abnormal findings of blood chemistry; R14.0 Abdominal distension (gaseous); E87.4 Mixed disorder of acid-base balance; Z20.822 Contact with and (suspected) exposure to COVID-19
CPT/HCPCS: 0202U; 31500; 36415; 36556; 36600; 36680; 71045; 80048; 80053; 80306; 80307; 80320; 80329; 81001; 82009; 82803; 84484; 85025; 92950; 93005; 94002; 96365; 96366; 96368; 96375; 99291; 99292; A9270; J1815; 81003; 83690; 87086; 94770